=== PATIENT | female | born 1950 | race African-American/Black ===

== ENCOUNTER 2019-03-24 20:52 | Inpatient (IN) | payer MEDICARE, OTHER ==
[~2019-03-24] VITALS: Ht 180.3 cm; Wt 141.7 kg
[2019-03-24] MEDS ORDERED: SODIUM CHLORIDE 0.9% 1,000 ML IV ONE (22:27)
[2019-03-24] MEDS ORDERED: MORPHINE SULFATE 4 MG/ML CPJ (NOT FOR IM USE) IV STA (22:27)
[2019-03-24] MEDS ORDERED: ONDANSETRON HCL 4MG/2ML INJ IV STA (22:27)
[2019-03-24] MEDS ORDERED: HYDRALAZINE 20MG/ML VIAL IV ONE ×2 (22:30→23:30)
[2019-03-24 22:42] LABS: BASOPHILS % 0.3 % (0.0-2.0); EOSINOPHILS % 0.6 % (0.0-5.0); LYMPHOCYTES % 14.8 % (20.0-50.0); MEAN CORPUSCULAR HEMOGLOBIN 25.7 pg (28.0-32.0); MEAN CORPUSCULAR VOLUME 79.6 fL (81.0-99.0); MEAN PLATELET VOLUME 8.2 fl (7.4-10.4); MONOCYTES % 7.4 % (2.0-8.0); NEUTROPHILS % 76.9 % (40.0-76.0); PLATELET 250 x1000/uL (130-400); RED BLOOD CELL COUNT 4.65 mill/uL (4.2-5.4); RED CELL DISTRIBUTION WIDTH 15.2 % (11.6-14.6)
[2019-03-24 22:48] LABS: CHLORIDE 110 mEq/L (98-107)
[2019-03-24] MEDS ORDERED: MORPHINE SULFATE 4 MG/ML CPJ (NOT FOR IM USE) IV ONE (23:30)
[2019-03-24] MEDS ORDERED: ONDANSETRON HCL 4MG/2ML INJ IV ONE (23:30)
[2019-03-25] MEDS ORDERED: CLONIDINE 0.2MG TABLET PO ONE (00:45)
[2019-03-25] MEDS ORDERED: HYDRALAZINE 20MG/ML VIAL IV ONE (02:00)
[2019-03-25] MEDS ORDERED: ONDANSETRON HCL 4MG/2ML INJ IV ONE (03:00)
[2019-03-25] MEDS ORDERED: MECLIZINE 25MG TABLET PO ONE (03:00)
[2019-03-25] MEDS ORDERED: ASPIRIN 81MG TABLET PO ONE (03:00)
[2019-03-25] MEDS ORDERED: LORAZEPAM 2MG/ML CPJ IV ONE (03:30)
[2019-03-25] MEDS ORDERED: NICARDIPINE 50 MG in SODIUM CHLORIDE 0.9% 230 ML IV PRN (04:45)
[2019-03-25] MEDS ORDERED: SODIUM CHLORIDE 0.9% IV PRN (05:00)
[2019-03-25] MEDS ORDERED: NICARDIPINE IV PRN (05:00)
[2019-03-25] MEDS ORDERED: HYDRALAZINE 20MG/ML VIAL IV PRN (09:45)
[2019-03-25] MEDS ORDERED: ONDANSETRON HCL 4MG/2ML INJ IV PRN (09:45)
[2019-03-25] MEDS ORDERED: CLONIDINE 0.1MG TABLET PO PRN (09:45)
[2019-03-25] MEDS ORDERED: ACETAMINOPHEN 325MG TABLET PO PRN (09:45)
[2019-03-25] MEDS ORDERED: MORPHINE SULFATE 2 MG/ML CPJ (NOT FOR IM USE) IV PRN (09:45)
[2019-03-25] MEDS ORDERED: HYDROCODONE/ACETAMINOPHEN 5/325MG TABLET PO PRN (09:45)
[2019-03-25] MEDS ORDERED: METOPROLOL TARTRATE 50MG TABLET PO ONE (10:00)
[2019-03-25] MEDS ORDERED: AMLODIPINE 5MG TABLET PO NR (10:00)
[2019-03-25] MEDS ORDERED: HYDRALAZINE HCL 100MG TABLET PO NR (11:45)
[2019-03-25] MEDS: CLONIDINE 0.1MG TABLET PO SCH ×2 (14:43→22:22)
[2019-03-25 16:28] VITALS: BP 162/68
[2019-03-25 17:57] LABS: CLARITY URINE CLEAR (CLEAR); COLOR URINE YELLOW (YELLOW); KETONES URINE NEGATIVE (NEGATIVE); LEUKOCYTE ESTERASE URINE TRACE (NEGATIVE); NITRITE URINE NEGATIVE (NEGATIVE); OCCULT BLOOD URINE NEGATIVE (NEGATIVE); PH URINE 6.5 (4.5-8.0); PROTEIN URINE NEGATIVE (NEGATIVE); SPECIFIC GRAVITY URINE 1.018 (1.005-1.030); UROBILINOGEN URINE 0.2 E.U./dL (0.2-1.0)
[2019-03-25 18:06] LABS: *AMPHETAMINES SCREEN URINE NEGATIVE (NEGATIVE); *BARBITURATES SCREEN URINE NEGATIVE (NEGATIVE); *BENZODIAZEPINES SCREEN URINE NEGATIVE (NEGATIVE); *COCAINE SCREEN URINE NEGATIVE (NEGATIVE)
[2019-03-25 18:07] LABS: CANNABINOID URINE SCREEN NEGATIVE (NEGATIVE); METHADONE URINE SCREEN NEGATIVE (NEGATIVE); OPIATES URINE SCREEN PRESUMTIVE POSITIVE (NEGATIVE); PHENCYCLIDINE URINE SCREEN NEGATIVE (NEGATIVE)
[2019-03-25 20:00] VITALS: BP 165/89
[2019-03-25] MEDS: HYDRALAZINE HCL 100MG TABLET PO SCH (20:51)
[2019-03-25] MEDS: METOPROLOL TARTRATE 100MG TABLET PO SCH (20:52)
[2019-03-25] MEDS: AMLODIPINE 5MG TABLET PO SCH (20:53)
[2019-03-25] MEDS ORDERED: METOPROLOL TARTRATE 50MG TABLET PO SCH (21:00)
[2019-03-25] MEDS: ENOXAPARIN 40MG/0.4ML SYR SUBCUT SCH (22:23)
[2019-03-26] VITALS: BP 155/60
[2019-03-26 04:00] VITALS: BP 116/51
[2019-03-26] MEDS: CLONIDINE 0.1MG TABLET PO SCH ×2 (05:08→14:51)
[2019-03-26 06:12] LABS: BASOPHILS % 0.3 % (0.0-2.0); EOSINOPHILS % 0.4 % (0.0-5.0); HEMATOCRIT. 33.7 % (36.0-48.0); HEMOGLOBIN. 10.8 g/dL (12.0-16.0); LYMPHOCYTES % 19.8 % (20.0-50.0); MEAN CORPUSCULAR HEMOGLOBIN 25.9 pg (28.0-32.0); MEAN CORPUSCULAR VOLUME 80.9 fL (81.0-99.0); NEUTROPHILS % 70.5 % (40.0-76.0); PLATELET 230 x1000/uL (130-400); RED BLOOD CELL COUNT 4.16 mill/uL (4.2-5.4); RED CELL DISTRIBUTION WIDTH 14.9 % (11.6-14.6)
[2019-03-26] MEDS: ENOXAPARIN 40MG/0.4ML SYR SUBCUT SCH (09:30)
[2019-03-26] MEDS: METOPROLOL TARTRATE 100MG TABLET PO SCH (09:30)
[2019-03-26] MEDS: HYDRALAZINE HCL 100MG TABLET PO SCH (09:31)
[2019-03-26] MEDS: AMLODIPINE 5MG TABLET PO SCH (09:31)
[2019-03-26 12:00] VITALS: BP 157/75
[2019-03-26 15:29] VITALS: BP 157/75
== END 2019-03-26 16:20 | disposition home health service (06) | DRG 554 ==
LOC: ER 20:52 → EDBEDREQSVC 03-25 04:44 → EDBEDREQTM 03-25 04:44 → EDBEDREQ 03-25 05:29 → EDBEDREQSVC 03-25 12:40 → ENRESERV 03-25 13:52 → 8WST 03-25 16:30
PROVIDERS: ADMIT Internal Medicine; ATTEND Internal Medicine
DX: M17.12 Unilateral primary osteoarthritis, left knee (principal); Z68.41 Body mass index [BMI] 40.0-44.9, adult; I16.0 Hypertensive urgency; E66.01 Morbid (severe) obesity due to excess calories; E87.8 Other disorders of electrolyte and fluid balance, not elsewhere classified; D64.9 Anemia, unspecified; I10 Essential (primary) hypertension; I77.819 Aortic ectasia, unspecified site; W01.0XXA Fall on same level from slipping, tripping and stumbling without subsequent striking against object, initial encounter; Z90.710 Acquired absence of both cervix and uterus; Y93.89 Activity, other specified; Y92.89 Other specified places as the place of occurrence of the external cause; Y99.8 Other external cause status
CPT/HCPCS: 36415; 71045; 73564; 73700; 73721; 80048; 80305; 82962; 83880; 84484; 93005; 97162; 99285; J0360; J1650; J2060; J2270; J2405; J3490; J7030; J7050; J8597; L1830